=== PATIENT | female | born 1985 | race Caucasian/White ===

== ENCOUNTER → 2019-10-20 | Outpatient (CLI) | payer OTHER ==
[~2019-10-20] MED LIST: ADVIL100 MG/5 M PO; ANAPROX DS550 MG PO; BACTRIM DS 8001 TA1 PO; CIPROFLOXACIN500 MG PO; COMPAZINE10 MG PO; DONNATAL1 TAB PO; K-Dur 20MEQ20 MEQ PO; MACROBID100 M1 PO; PYRIDIUM200 MG PO; SEPTRA DS 800 M1 TAB PO; TRAMADOL HCL50 MG PO; ZANTAC150 MG PO; ZITHROMAX Z PA250 MG PO; ZOFRAN ODT8 MG PO; ZOFRAN4 MG PO; Zofran4 MG PO
== END | disposition home or self-care (01) ==
LOC: US 13:23
DX: Z34.81 Encounter for supervision of other normal pregnancy, first trimester (principal); Z3A.13 13 weeks gestation of pregnancy

== ENCOUNTER → 2019-11-21 | Outpatient (CLI) | payer OTHER | END | disposition home or self-care (01) | LOC: US 10:51 | DX: Z34.82 Encounter for supervision of other normal pregnancy, second trimester (principal); Z3A.18 18 weeks gestation of pregnancy ==

== ENCOUNTER → 2020-02-10 | Outpatient (CLI) | payer OTHER | END | disposition home or self-care (01) | LOC: US 01-27 10:00 | DX: Z34.82 Encounter for supervision of other normal pregnancy, second trimester (principal); Z3A.29 29 weeks gestation of pregnancy ==

== ENCOUNTER 2022-03-07 01:30 | Emergency (ER) | payer OTHER ==
[~2022-03-07] VITALS: Ht 157.4 cm; Wt 72.6 kg
[2022-03-07] MEDS ORDERED: MOTRIN CHI100 MG/51 PO ×3 (02:55)
== END 2022-03-07 02:13 | disposition home or self-care (01) ==
LOC: ED 01:30
DX: S05.02XA Injury of conjunctiva and corneal abrasion without foreign body, left eye, initial encounter (principal); Z88.1 Allergy status to other antibiotic agents; W51.XXXA Accidental striking against or bumped into by another person, initial encounter; Y93.89 Activity, other specified; Y92.89 Other specified places as the place of occurrence of the external cause; Y99.8 Other external cause status

== ENCOUNTER 2022-05-20 08:07 | Emergency (ER) | payer OTHER ==
[~2022-05-20] VITALS: Ht 157.4 cm; Wt 77.1 kg
[~2022-05-20 08:07] MED LIST changes: +MOTRIN CHI100 MG/51 PO
[2022-05-20 08:49] LABS: BILIRUBIN 1+ (Negative); BLOOD 1+ (Negative); CLARITY Clear (Clear); COLOR Dark Yellow (Yellow); GLUCOSE Negative (Negative); KETONE 1+ (Negative); LEUKO ESTERASE 1+ (Negative); NITRITE Negative (Negative); PH 7.5 (4.5-8.0)
[2022-05-20 09:11] LABS: MUCOUS TRACE; RBC 21-30 rbc/hpf (0-2)
[2022-05-20] MEDS ORDERED: ZOFRAN ODT SL (09:29)
[2022-05-20] MEDS ORDERED: Bactrim 200 MG/30 ML PO (09:29)
== END 2022-05-20 09:40 | disposition home or self-care (01) ==
LOC: ED 08:07
PROVIDERS: Emergency Medicine
DX: N39.0 Urinary tract infection, site not specified (principal)

== ENCOUNTER 2022-05-22 07:56 | Emergency (ER) | payer OTHER ==
[~2022-05-22] VITALS: Ht 157.4 cm; Wt 81.6 kg
[~2022-05-22 07:56] MED LIST changes: +Bactrim 200 MG/30 ML PO; +ZOFRAN ODT SL
[2022-05-22 08:57] LABS: BILIRUBIN Negative (Negative); BLOOD 3+ (Negative); CLARITY Clear (Clear); GLUCOSE Negative (Negative); KETONE Negative (Negative); LEUKO ESTERASE Negative (Negative); NITRITE Negative (Negative); PH 7.5 (4.5-8.0)
[2022-05-22 09:09] LABS: BASO % 0.4 % (0.0-1.0); EOS # 0.1 10*3/uL (0.0-0.4); EOS % 1.2 % (1.0-4.0); HEMATOCRIT 37.7 % (37.0-47.0); LYMPH # 0.7 10*3/uL (1.3-4.4); MEAN CELL VOLUME 83.4 fl (81.0-99.0); MEAN CORPUSCULAR HGB 27.9 pg (27.0-31.0); MEAN CORPUSCULAR HGB CONC 33.4 g/dl (33.0-37.0); MEAN PLATELET VOLUME 10.4 fl (9.6-12.3); MONO # 0.4 10*3/uL (0.1-1.0); MONO % 7.2 % (3.0-9.0); NEUT % 77.8 % (47.0-73.0); PLATELET COUNT AUTOMATED 121 10*3/uL (130-400); RED BLOOD COUNT 4.52 10*6/uL (4.10-5.10); RED CELL DISTRI WIDTH 12.7 % (0-14.5); WHITE BLOOD COUNT 5.2 10*3/uL (4.8-10.8)
[2022-05-22 09:23] LABS: ALKALINE PHOSPHATASE 154 U/L (45-117); BUN 5 mg/dl (7-24); CHLORIDE 105 mmol/L (98-107); CREATININE 0.62 mg/dL (0.55-1.02); POTASSIUM 3.7 mmol/L (3.5-5.1); SGOT/AST 73 IU/L (3-35); SGPT/ALT 172 U/L (12-78); SODIUM 137 mmol/L (136-145); TOTAL PROTEIN 6.4 gm/dL (6.4-8.2)
[2022-05-22 09:43] LABS: BACTERIA 1+; COLOR Red (Yellow); RBC 41-50 rbc/hpf (0-2)
[2022-05-22] MEDS ORDERED: CEPHALEXIN250 MG/5 M PO (13:50)
== END 2022-05-22 14:00 | disposition home or self-care (01) ==
LOC: ED 07:56
PROVIDERS: Emergency Medicine
DX: N39.0 Urinary tract infection, site not specified (principal); Z20.822 Contact with and (suspected) exposure to COVID-19

== ENCOUNTER 2024-06-06 12:57 | Emergency (ER) | payer SELFPAY ==
[~2024-06-06] VITALS: Ht 160 cm; Wt 80.7 kg
[~2024-06-06 12:57] MED LIST changes: +CEPHALEXIN250 MG/5 M PO
[2024-06-06 13:25] LABS: BILIRUBIN Negative (Negative); BLOOD 3+ (Negative); CLARITY Clear (Clear); COLOR Red (Yellow); GLUCOSE Negative (Negative); KETONE Negative (Negative); LEUKO ESTERASE 1+ (Negative); NITRITE Negative (Negative); PH 7.5 (4.5-8.0); SPECIFIC GRAVITY <= 1.005 (1.001-1.030); UROBILINOGEN 0.2 E.U./dl (0.0-1.0)
[2024-06-06 13:51] LABS: RBC TNTC rbc/hpf (0-2)
[2024-06-06] MEDS ORDERED: NITROFURAN50 MG/5 ML PO (13:56)
[2024-06-06] MEDS ORDERED: CEPHALEXIN250 MG/5 M PO (14:44)
== END 2024-06-06 14:32 | disposition home or self-care (01) ==
LOC: ED 12:57
PROVIDERS: Internal Medicine
DX: N39.0 Urinary tract infection, site not specified (principal)